=== PATIENT | female | born 1980 | race Caucasian/White ===

== ENCOUNTER 2016-07-11 11:53 | Emergency (ER) | payer OTHER | END 2016-07-11 13:20 | disposition other institution (70) | LOC: ER 11:53 | DX: S01.21XA Laceration without foreign body of nose, initial encounter (principal); M54.6 Pain in thoracic spine; M54.5 Low back pain; W17.89XA Other fall from one level to another, initial encounter; Y92.019 Unspecified place in single-family (private) house as the place of occurrence of the external cause; F17.210 Nicotine dependence, cigarettes, uncomplicated; Z88.8 Allergy status to other drugs, medicaments and biological substances; Z79.899 Other long term (current) drug therapy | CPT/HCPCS: 70160; 72072; 72100; 99283 ==